=== PATIENT | male | born 1950 | race Caucasian/White ===

== ENCOUNTER → 2016-08-02 | Outpatient (CLI) | payer MEDICARE, BC ==
[~2016-08-02] MED LIST: ASPIRIN EC81 M1 PO; ASPIRIN PO; BENTYL10 MG PO; CIPRO PO; COREG PO; COREG6.25 MG PO; LIPITOR PO; METHIMAZOLE10 MG PO; MIRALAX17 GM PO; PHENERGAN PO; ZESTRIL2.5 MG PO
--- NOTE | ~2016-08-02 | CR63 ---
[facility] A Service of [facility] & [facility] RADIOLOGY TEXT RESULTS PATIENT: [facility]UNG [facility] UN[facility] #: [id number] AGE: [address]: Justyn Pedraza MD SEX: M ORDER DR: [id number] [facility] [address] [place], [place] [address] [id number] O MR#: [id number] Acc #: [id number] NAME: PAGE CHEUNG : 1950 SEX: M STUDY DATE/TIME: 08/02/2016 6:49 UNIT: CCAT ROOM: STUDY DESCRIPTION: CR Chest 2 View Attending Physician: Justyn Pedraza M.D. Referring Physician: Justyn Pedraza M.D. Ordering Physician: Justyn Pedraza M.D. Primary Care Physician: Emmanuel Maldonado M.D. MEDICAL IMAGING REPORT This report is preliminary unless electronic signature is present EXAM Two-view chest, 08/02/2016. HISTORY 66-year-old male with history of renal cell carcinoma. Cancer screening. Shortness of breath. COMPARISON Chest, 07/27/2015. FINDINGS 2 views of the chest demonstrate clear lungs. No pleural effusion or pneumothorax. Heart size and mediastinum are normal. Pulmonary vasculature normal. Left-sided AICD complex. No acute bony abnormality. Mild degenerative changes in the thoracic spine. IMPRESSION No acute cardiopulmonary findings. Dictated by... Antonio Hunt M.D. THIS IS AN ELECTRONICALLY VERIFIED REPORT Antonio Hunt M.D. at 08/02/2016 6:38 PM BRADEN/kylah TD: 08/02/2016 10:46 JOB #: [id number] MEDICAL IMAGING REPORT Page 1 of 1 COPY
--- NOTE | ~2016-08-02 | CT3 ---
[facility] A Service of [facility] RADIOLOGY TEXT RESULTS PATIENT: PAGE CHEUNG [facility] 52 UNIT #: [id number] AGE: [address]: Justyn Pedraza MD SEX: M ORDER DR: [id number] [facility] [place], [place] [address] [id number] O MR#: [id number] Acc #: [id number] NAME: PAGE CHEUNG : 1950 SEX: M STUDY DATE/TIME: 08/02/2016 7:49 UNIT: CCAT ROOM: STUDY DESCRIPTION: CT Abd and Pelv WWo Cont Attending Physician: Justyn Pedraza M.D. Referring Physician: Justyn Pedraza M.D. Ordering Physician: Justyn Pedraza M.D. Primary Care Physician: Emmanuel Maldonado M.D. MEDICAL IMAGING REPORT This report is preliminary unless electronic signature is present EXAM CT abdomen and pelvis without and with contrast INDICATION Restaging renal cell carcinoma. Observation for metastatic disease. PROCEDURE Unenhanced CT of the abdomen. Multiphase postcontrast CT of the abdomen, including 5-minute delayed imaging of the abdomen and pelvis. 100 mL of Isovue-370. This CT examination was performed with one or more of the following radiation dose reduction techniques: automatic exposure control, adjustment of mA and/or kV according to patient size, and iterative reconstruction. COMPARISON 07/27/2015. FINDINGS ABDOMEN WITHOUT CONTRAST: Paraseptal emphysematous change posterior lung bases. Mild hepatic steatosis. No radiodense gallstones. No radiodense urinary system calculus. PELVIS WITHOUT CONTRAST: No radiodense bladder calculus. ABDOMEN WITH CONTRAST: Kidneys enhance symmetrically. Partial nephrectomy change in the lower pole of the right kidney. No enhancing renal mass. Symmetric excretion of contrast. No abnormal filling defect in the collecting systems or ureters. No liver or splenic mass. Adrenal glands, pancreas, gallbladder unremarkable. The bowel loops are nondilated. Appendix is normal. [facility] A Service of [facility] RADIOLOGY TEXT RESULTS PATIENT: PAGE CHEUNG [id number] 52 UNIT #: [id number] AGE: [address]: Justyn Pedraza MD SEX: M ORDER DR: Moderate colonic stool burden. There is no abnormal soft tissue in the right perinephric fat. No abdominal adenopathy. PELVIS WITH CONTRAST: No pelvic mass or fluid. No aggressive appearing bone lesion. IMPRESSION 1. Partial nephrectomy change lower pole of the right kidney. No evidence for recurrent disease or metastatic disease to the abdomen or pelvis. 2. No acute findings. 3. Hepatic steatosis. Dictated by... Kofi Reece M.D. THIS IS AN ELECTRONICALLY VERIFIED REPORT Kofi Reece M.D. at 08/02/2016 3:55 PM JENY/memo TD: 08/02/2016 12:11 JOB #: [id number] MEDICAL IMAGING REPORT Page 1 of 1 COPY
[2016-08-02 06:45] LABS: HEMATOCRIT 44.1 % (38.0-50.0); HEMOGLOBIN 14.9 gm/dL (13.0-16.0); MEAN CELL VOLUME 86.2 FL (83-96); MEAN CORPUSCULAR HEMOGLOBIN 29.1 PG (28-34); MEAN CORPUSCULAR HGB CONC 33.8 g/dL (30-36); MEAN PLATELET VOLUME 8.9 FL (6.5-11.5); RED BLOOD COUNT 5.12 X10e (3.90-5.60); RED CELL DISTRIBUTION WIDTH 12.6 % (11.0-15.5); WHITE BLOOD COUNT 8.3 X10e3 (4.0-10.5)
[2016-08-02 07:33] LABS: ALBUMIN SERUM 4.1 g/dL (3.5-5.0); BILIRUBIN,TOTAL 0.8 mg/dL (0.2-2.0); GLOM FILT RATE Estimated 78.6 mL/min (>60); POTASSIUM 4.3 mmol/L (3.5-5.1); PROTEIN TOTAL SERUM 6.9 g/dL (6.0-8.3)
== END | disposition home or self-care (01) ==
LOC: CLAB 06:12
PROVIDERS: Urology
DX: Z08 Encounter for follow-up examination after completed treatment for malignant neoplasm (principal); K76.0 Fatty (change of) liver, not elsewhere classified; Z85.528 Personal history of other malignant neoplasm of kidney; Z90.5 Acquired absence of kidney
CPT/HCPCS: 36415; 71020; 74178; 80053; 85027; Q9967